=== PATIENT | female | born 1950 | race Caucasian/White ===

== ENCOUNTER → 2017-12-16 | Outpatient (CLI) | payer OTHER ==
--- NOTE | ~2017-12-16 | 2DMMODE ---
[facility] [place] [place] [address] 2 D/M-MODE ECHOCARDIOGRAM Name: LUZ LINO Room #: REG [facility] [id number] Admission: 12/16/17 Attend Phys: Chidi Crabtree Discharge: Date of : 52 Date of Service: 12/16/17 1002 Report #: [id number] THIS REPORT FOR: //name// APPROVED REPORT Study performed: 12/16/2017 09:15:33 EXAM: Comprehensive 2D, Doppler, and color-flow Echocardiogram Patient Location: Out-Patient Status: routine BSA: 2.04 HR: 72 bpm BP: 149/74 mmHg Rhythm: NSR Other Information Study Quality: Good Indications Atrial tachycardia, HTN, DM 2D Dimensions RVDd: 33.78 mm LVEF(%): 54.27 (>50%) IVSd: 9.96 (7-11mm) LVOT Diam: 18.84 (18-24mm) LVDd: 44.56 mm PWd: 10.30 (7-11mm) Ascending Ao: 26.88 (22-36mm) LVDs: 32.11 (25-40mm) Aortic Root: 28.70 mm Portillo's LVEF: 54.27 % Volumes Left Atrial Volume (Systole) Single Plane 4CH: 34.96 mL Single Plane 2CH: 33.86 mL LA ESV Index: 18.00 mL/m2 Aortic Valve AoV Peak Miguel Ángel.: 1.69 m/s AO Peak Gr.: 11.45 mmHg LVOT Max P.77 mmHg LVOT Max V: 1.09 m/s KEN Vmax: 1.80 cm2 Mitral Valve E/A Ratio: 1.1 MV Decel. Time: 240.26 ms [facility] [address] [place] [address] 2 D/M-MODE ECHOCARDIOGRAM Name: LUZ LINO Room #: [facility]#: [id number] Admission: 12/16/17 Attend Phys: Chidi Crabtree Discharge: Date of : 52 Date of Service: 12/16/17 1002 Report #: [id number] MV E Max Miguel Ángel.: 1.02 m/s MV A Miguel Ángel.: 0.96 m/s MV PHT: 69.67 ms IVRT: 76.12 ms Pulmonary Valve PV Peak Miguel Ángel.: 0.98 m/s PV Peak Gr.: 3.86 mmHg Pulmonary Vein P Vein S: 0.50 m/s P Vein A: 0.38 m/s P Vein D: 0.40 m/s P Vein A Dur.: 93.4 msec P Vein S/D Ratio: 1.25 Tricuspid Valve TR Peak Miguel Ángel.: 2.55 m/s RAP Estimate: 5.00 mmHg TR Peak Gr.: 25.96 mmHg PA Pressure: 31.00 mmHg Left Ventricle The left ventricle is normal size. There is normal LV segmental wall motion. There is normal left ventricular wall thickness. Left ventricular systolic function is normal. LVEF is 60-65%. Moderate diastolic dysfunction is present (pseudonormal filling). Right Ventricle The right ventricle is normal size. The right ventricular systolic function is normal. Atria The left atrium size is normal. The right atrium size is normal. Aortic Valve Aortic valve is mildy calcified. No aortic regurgitation is present. There is no aortic valvular stenosis. Mitral Valve The mitral valve is normal in structure. Mild mitral regurgitation. No evidence of mitral valve stenosis. Tricuspid Valve The tricuspid valve is normal in structure. Mild to moderate tricuspid regurgitation. Estimated PAP is 30-35mmHg. Pulmonic Valve The pulmonary valve is normal in structure. Trace pulmonic [facility] [address] [place] [address] 2 D/M-MODE ECHOCARDIOGRAM Name: LUZ LINO Room #: REG CL Janessa#: [id number] Admission: 12/16/17 Attend Phys: Chidi Crabtree Discharge: Date of : 52 Date of Service: 12/16/17 1002 Report #: [id number] regurgitation. Great Vessels The aortic root is normal in size. The ascending aorta is normal in size. IVC is normal in size and collapses >50% with inspiration. Pericardium There is no pericardial effusion. <Conclusion> Left ventricular systolic function is normal. There is normal LV segmental wall motion. LVEF 60-65%. Moderate diastolic dysfunction is present (pseudonormal filling). Aortic valve is mildy calcified. No aortic valvular stenosis or insufficiency. The mitral valve is normal in structure. Mild mitral regurgitation. Pulmonary artery pressure of 30-35mmHg There is no pericardial effusion. <ELECTRONICALLY SIGNED> By: Emre Watson MD, FACC 12/16/17 1002 1002 1002 Emre Watson MD, FACC /INF
== END ==
LOC: CV 12-03 09:59
DX: I08.1 Rheumatic disorders of both mitral and tricuspid valves (principal); I47.1 Supraventricular tachycardia; I10 Essential (primary) hypertension; E11.9 Type 2 diabetes mellitus without complications

== ENCOUNTER → 2018-01-09 | Outpatient (CLI) | payer OTHER ==
--- NOTE | ~2018-01-09 | SLE ---
[facility] [place] [address] POLYSOMNOGRAPHY STUDY Name: LUZ LINO Room #: REG [facility]#: [id number] Admission: 01/09/18 Attend Phys: Rona Brand MD Discharge: Date of : 52 Report #: [id number] THIS REPORT FOR: //name// CC: Rona Rich The patient with history of snoring, asthma, witnessed apnea, lymphedema. Luckey sleepiness scale of 8. COMMENTS: SLEEP SUMMARY: Total sleep time 340 minutes. Sleep efficiency 84%. Sleep onset 41 minutes, REM latency ___. SLEEP STAGE: 1-38 2-62%. RESPIRATORY SUMMARY: Central apnea 0, obstructive apnea 14, hypopneas 7. Respiratory effort related arousals 1.8. Apnea-hypopnea index of 3.7 events per recording hour. Respiratory disturbance index of 5.5 events per sleep hour. Supine AHI 5.5, left lateral 0 events per sleep hour. Periodic limb movement with arousal index of 9 events per sleep hour. Snoring 18%. Low oxygen saturation 85%, spending 0.3 minutes less than 90%. IMPRESSION: 1. Positional sleep apnea. 2. Abnormal sleep architecture with no REM or 3 sleep. 3. Periodic limb movement with arousal index of 9 events per sleep hour. 4. No significant arrhythmia noted. SUGGESTIONS: 1. the patient related her sleep was better on this night with no significant REM sleep. 2. Further evaluation regarding restless legs and periodic limb movement is recommended. 3. As there may be a REM component, further evaluation is recommended with discussion with the patient regarding her sleep night and may consider an evaluation with a home sleep study or a repeat sleep study. 4. Weight loss is recommended. 5. Further evaluation regarding medication effect on sleep is recommended 6. Oral appliance or appropriate surgery may be considered with appropriate followup. 7. Please do not hesitate to contact me if I may be of further assistance. <ELECTRONICALLY SIGNED> By: Rona Brand MD 01/14/181940 52 09 Rona Brand MD /nt
== END ==
LOC: SLEEPLAB 16:10
DX: G47.33 Obstructive sleep apnea (adult) (pediatric) (principal)

== ENCOUNTER → 2018-09-21 | Outpatient (CLI) | payer OTHER ==
--- NOTE | ~2018-09-21 | 2DMMODE ---
[facility] [address] [place] [address] 2 D/M-MODE ECHOCARDIOGRAM Name: LUZ LINO Room #: REG [facility]#: [id number] Admission: 09/21/18 Attend Phys: Chidi Crabtree Discharge: Date of : 52 Date of Service: 09/21/18 1001 Report #: [id number] THIS REPORT FOR: //name// APPROVED REPORT Study performed: 09/21/2018 09:23:20 EXAM: Comprehensive 2D, Doppler, and color-flow Echocardiogram Patient Location: Out-Patient Status: routine BSA: 2.04 HR: 79 bpm BP: 130/78 mmHg Rhythm: NSR Other Information Study Quality: Good Indications History of Atrial tachycardia, HTN. 2D Dimensions RVDd: 33.20 mm IVSd: 10.52 (7-11mm) LVOT Diam: 19.85 (18-24mm) LVDd: 44.40 mm PWd: 9.86 (7-11mm) Ascending Ao: 30.20 (22-36mm) LVDs: 23.88 (25-40mm) Aortic Root: 28.61 mm Volumes Left Atrial Volume (Systole) Single Plane 4CH: 42.46 mL Single Plane 2CH: 52.13 mL LA ESV Index: 25.00 mL/m2 Aortic Valve AoV Peak Miguel Ángel.: 1.79 m/s AO Peak Gr.: 12.86 mmHg LVOT Max P.11 mmHg LVOT Max V: 1.33 m/s KEN Vmax: 2.30 cm2 Mitral Valve E/A Ratio: 0.8 MV Decel. Time: 178.61 ms MV E Max Miguel Ángel.: 0.98 m/s [facility] [address] [place] [address] 2 D/M-MODE ECHOCARDIOGRAM Name: SHALOM PIERSONLUZ Sebastian Room #: [facility]#: [id number] Admission: 09/21/18 Attend Phys: Chidi Crabtree Discharge: Date of : 52 Date of Service: 09/21/18 1001 Report #: [id number] MV A Miguel Ángel.: 1.22 m/s MV PHT: 51.80 ms IVRT: 62.28 ms Pulmonary Valve PV Peak Miguel Ángel.: 1.38 m/s PV Peak Gr.: 7.60 mmHg Pulmonary Vein P Vein S: 0.66 m/s P Vein D: 0.57 m/s P Vein S/D Ratio: 1.16 Tricuspid Valve TR Peak Miguel Ángel.: 2.68 m/s RAP Estimate: 5.00 mmHg TR Peak Gr.: 28.68 mmHg Left Ventricle The left ventricle is normal size. There is normal LV segmental wall motion. There is normal left ventricular wall thickness. Left ventricular systolic function is normal. LVEF is 60-65%. Mild diastolic dysfunction is present (impaired relaxation pattern). Right Ventricle The right ventricle is normal size. The right ventricular systolic function is normal. Atria The left atrium size is normal. The right atrium size is normal. Aortic Valve Aortic valve is minimally calcified. No aortic regurgitation is present. There is no aortic valvular stenosis. Mitral Valve The mitral valve is normal in structure. Mild mitral regurgitation. Tricuspid Valve The tricuspid valve is normal in structure. Mild tricuspid regurgitation. Estimated PAP is 35mmHg. Pulmonic Valve The pulmonary valve is normal in structure. Trace pulmonic regurgitation. [facility] [place] [place] [address] 2 D/M-MODE ECHOCARDIOGRAM Name: SHALOM PIERSONLUZ K [id number] Admission: 09/21/18 Attend Phys: Chidi Crabtree Discharge: Date of : 52 Date of Service: 09/21/18 1001 Report #: [id number] Great Vessels The aortic root is normal in size. The ascending aorta is normal in size. IVC is normal in size and collapses >50% with inspiration. Pericardium There is no pericardial effusion. <Conclusion> The left ventricle is normal size. LVEF is 60-65%. Aortic valve is minimally calcified. The mitral valve is normal in structure. Mild mitral regurgitation. The tricuspid valve is normal in structure. Mild tricuspid regurgitation. Estimated PAP is 35mmHg. The pulmonary valve is normal in structure. Trace pulmonic regurgitation. There is no pericardial effusion. <ELECTRONICALLY SIGNED> By: Walter Christine MD 09/21/18 1001 1001 1001 Walter Christine MD /INF
== END ==
LOC: CV 09:05
DX: I08.1 Rheumatic disorders of both mitral and tricuspid valves (principal); I10 Essential (primary) hypertension

== ENCOUNTER → 2020-03-21 | Outpatient (CLI) | payer OTHER | LOC: SJCVCIMAG 08:53 | DX: I27.20 Pulmonary hypertension, unspecified (principal); R00.0 Tachycardia, unspecified ==

== ENCOUNTER 2020-04-08 17:56 | Emergency (ER) | payer OTHER ==
[~2020-04-08] VITALS: Ht 162.6 cm; Wt 98.4 kg
[2020-04-08 18:33] LABS: URINE BILIRUBIN NEGATIVE (Negative); URINE BLOOD NEGATIVE (Negative); URINE CLARITY CLEAR; URINE COLOR YELLOW; URINE GLUCOSE-RANDOM* NEGATIVE (Negative); URINE KETONES NEGATIVE (Negative); URINE NITRITE-REFLEX NEGATIVE (Negative); URINE PROTEIN (DIPSTICK) NEGATIVE (Negative); URINE UROBILINOGEN 0.2 E.U./dl (0.2-1.0)
[2020-04-08] MEDS ORDERED: AMLODIPINE BESY10 MG PO (18:33)
[2020-04-08 18:34] LABS: URINE LEUKOCYTES-REFLEX 3+ (Negative)
[2020-04-08] MEDS ORDERED: LIPITOR 20 MG T20 M1 PO (18:34)
[2020-04-08 18:35] LABS: ABSOLUTE NEUTROPHILS 6.6 thou/uL (1.4-8.2); BASOPHILS 0.9 % (0.0-2.0); HEMATOCRIT 35.5 % (37.0-47.0); HEMOGLOBIN 11.7 gm/dL (12.0-15.0); LYMPHOCYTES 23.7 % (24.0-44.0); MCH 28.9 pg (26.0-34.0); MCHC 32.8 g/dL (28.0-37.0); MCV 87.9 fL (80.0-100.0); MONOCYTES 7.7 % (1.0-8.0); PLATELET COUNT 373 thou/uL (150-400); POLYS 65.7 % (36.0-66.0); RBC 4.04 mil/uL (4.20-5.00); RDW 13.7 % (10.5-14.5)
[2020-04-08] MEDS ORDERED: NEXIUM40 MG PO (18:35)
[2020-04-08] MEDS ORDERED: ESTRACE1 TUBE VAG (18:35)
[2020-04-08] MEDS ORDERED: TAMBOCOR 100 M100 M1 PO (18:36)
[2020-04-08] MEDS ORDERED: NEURONTIN100 MG PO (18:37)
[2020-04-08] MEDS ORDERED: HYDROCHLOROTHIA25 M2 PO (18:37)
[2020-04-08] MEDS ORDERED: NEURONTIN300 MG PO (18:37)
[2020-04-08] MEDS ORDERED: IRBESARTAN300 MG PO (18:38)
[2020-04-08] MEDS ORDERED: LAMOTRIGINE250 MG PO (18:39)
[2020-04-08] MEDS ORDERED: LORAZEPAM 0.50.5 MG PO (18:40)
[2020-04-08] MEDS ORDERED: METFORMIN HCL500 M3 PO (18:40)
[2020-04-08] MEDS ORDERED: TOPROL XL100 MG PO (18:42)
[2020-04-08] MEDS ORDERED: PAXIL20 MG PO (18:43)
[2020-04-08] MEDS ORDERED: NORTRIPTYLINE H25 M3 PO (18:43)
[2020-04-08 18:45] LABS: ANION GAP 10 mmol/L (7-16); BUN 23 mg/dL (7-18); CALCIUM 9.6 mg/dL (8.5-10.1); CHLORIDE 96 mmol/L (98-107); CO2 29 mmol/L (21-32); GLUCOSE 163 mg/dL (74-106); POTASSIUM 3.5 mmol/L (3.5-5.1); SODIUM 135 mmol/L (136-145)
[2020-04-08 18:46] LABS: SQUAMOUS 0-3 Few /LPF (0-3); URINE RBC None Seen /HPF (0-2)
[2020-04-08 18:47] LABS: BACTERIA-REFLEX 1-9 Few /HPF (None Seen); CASTS None Seen /LPF (None Seen); CRYSTALS None Seen /LPF (None Seen); URINE WBC-REFLEX 0-5 Rare /HPF (0-5)
[2020-04-08 18:50] LABS: TROPONIN-I <0.06 ng/mL (<0.06)
[2020-04-08] MEDS ORDERED: PRANDIN1 MG PO (18:58)
[2020-04-08] MEDS ORDERED: QVAR REDIHALE10.6 G1 INH (18:58)
[2020-04-08] MEDS ORDERED: SLOW FE142 MG PO (18:59)
[2020-04-08 20:18] VITALS: BP 172/59
--- NOTE | 2020-04-09 14:27 | EKG ---
[facility] [place] [address] [place] [address] ELECTROCARDIOGRAM REPORT Name: LUZ LINO [facility] [id number] Admission: 04/08/20 Attend Phys: Discharge: 04/08/20 Date of : 52 Report #: [id number] THIS REPORT FOR: cc: Damien Rich MD, Ralph R. MD Park, Jin S. 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
== END 2020-04-08 20:32 | disposition home or self-care (01) ==
LOC: ER 17:56
PROVIDERS: Emergency Medicine
DX: R00.2 Palpitations (principal); R06.02 Shortness of breath; R61 Generalized hyperhidrosis; R11.0 Nausea; E11.9 Type 2 diabetes mellitus without complications; I10 Essential (primary) hypertension; G43.909 Migraine, unspecified, not intractable, without status migrainosus; Z79.899 Other long term (current) drug therapy; Z88.8 Allergy status to other drugs, medicaments and biological substances; Z88.2 Allergy status to sulfonamides

== ENCOUNTER → 2020-04-10 | Outpatient (CLI) | payer OTHER ==
[~2020-04-10] MED LIST: AMBIEN 10 MG TA10 MG PO; AMLODIPINE BESY10 MG PO; ESTRACE1 TUBE VAG; HYDROCHLOROTHIA25 M2 PO; IRBESARTAN300 MG PO; LAMOTRIGINE250 MG PO; LIPITOR 20 MG T20 M1 PO; LORAZEPAM 0.50.5 MG PO; METFORMIN HCL500 M3 PO; NEURONTIN100 MG PO; NEURONTIN300 MG PO; NEXIUM40 MG PO; NORTRIPTYLINE H25 M3 PO; PAXIL20 MG PO; PRANDIN1 MG PO; QVAR REDIHALE10.6 G1 INH; SLOW FE142 MG PO; TAMBOCOR 100 M100 M1 PO; TIZANIDINE HCL4 M1 PO; TOPROL XL100 MG PO; TRAMADOL 50 MG50 MG PO
== END ==
LOC: SJCVC 11:14
PROVIDERS: ATTEND Internal Medicine Cardiovascular Disease
DX: I47.1 Supraventricular tachycardia (principal); I10 Essential (primary) hypertension; E66.01 Morbid (severe) obesity due to excess calories; Z90.49 Acquired absence of other specified parts of digestive tract; Z79.899 Other long term (current) drug therapy

== ENCOUNTER → 2020-04-18 | Outpatient (CLI) | payer OTHER ==
[~2020-04-18] MED LIST changes: -AMBIEN 10 MG TA10 MG PO; -TIZANIDINE HCL4 M1 PO; -TRAMADOL 50 MG50 MG PO
== END ==
LOC: SJCVCIMAG 09:31
DX: R06.00 Dyspnea, unspecified (principal); I10 Essential (primary) hypertension; E11.9 Type 2 diabetes mellitus without complications; Z87.891 Personal history of nicotine dependence; Z79.82 Long term (current) use of aspirin; Z79.899 Other long term (current) drug therapy

== ENCOUNTER → 2020-05-04 | Outpatient (CLI) | payer OTHER ==
[~2020-05-04] MED LIST changes: +AMBIEN 10 MG TA10 MG PO; +TIZANIDINE HCL4 M1 PO; +TRAMADOL 50 MG50 MG PO
== END ==
LOC: SJCVC 09:16
PROVIDERS: ATTEND Internal Medicine Cardiovascular Disease
DX: R94.31 Abnormal electrocardiogram [ECG] [EKG] (principal); R06.09 Other forms of dyspnea; I47.1 Supraventricular tachycardia; I10 Essential (primary) hypertension

== ENCOUNTER → 2020-05-07 | Outpatient (CLI) | payer OTHER ==
[~2020-05-07] VITALS: Ht 162.6 cm; Wt 98.4 kg
[2020-05-07 08:48] VITALS: BP 121/37
--- NOTE | 2020-05-07 14:37 | CATHLAB ---
[facility] [place] [address] [place] [address] INVASIVE PROCEDURE REPORT Name: LUZ LINO Room #: REG JENNIFER Peres.#: [id number] Admission: 05/07/20 Attend Phys: Mir Murrell MD Discharge: Date of : 52 Report #: [id number] THIS REPORT FOR: cc: Damien Rich MD, Ralph R. MD Park, Jin S. MD ~ APPROVED REPORT Study performed: 05/07/2020 08:58:02 Patient Details Patient Status: Out-Patient Room #: The patient is a 70 year-old female Event Personnel Mir Murrell Financial Analysis Advisor, Rishi Noel RN RN, Rashmi Waters RN RN, Nuria Jimenez RTR Nayana Lindsey Ja'net RTR Monitor, Etelvina Johnston RT(R)() Monitor Procedures Performed Left Heart Cath w/or w/o Coronaries [id number] [facility] Art Access - R femoral artery* 41710 Initial Mod Sed Same Phys/QHP Gr5y [id number] Hemostasis with Manual pressure Indication Dyspnea, Positive stress test, Chest pain Risk Factors Hypercholesterolemia, Hypertension, Diabetes Procedure Narrative The patient was brought electively to the Cardiac Catheterization Laboratory and was prepped and draped in a sterile manner. The Right Groin^ was infiltrated with 1% Lidocaine subcutaneous anesthesia. A PINNACLE 4FR Sheath #[id number] sheath was inserted into the RFA^. Coronary angiography was performed using coronary diagnostic catheters. The right coronary system was accessed and visualized with a JR4 catheter. The left coronary system was accessed and visualized with a JL4 catheter. The left ventricle was accessed and visualized with a JL4 catheter. Left ventriculogram was performed in 30 degree projection. Hemostasis was obtained with manual pressure following sheath removal without any complications. The patient tolerated the procedure well and there were no complications associated with the procedure. There was no hematoma. [address] [address] INVASIVE PROCEDURE REPORT Name: LUZ LINO Room #: REG [facility]#: [id number] Admission: 05/07/20 Attend Phys: Mir Murrell MD Discharge: Date of : 52 Report #: [id number] Intraoperative Conscious Sedation Sedation start time: 9:30 Case end Time: 9:55 Fentanyl 100 mcg Versed 1 mg Fluoro Time: 3.00 minutes Dose: DAP 3435.00 cGycm2 994 mGy Contrast Type and Amount: Omnipaque 45 ml Coronary Angiography The patient's coronary anatomy is co- dominant. Diagnostic Cath Left Main The left main artery is a large-caliber vessel, with no flow-limiting lesions. LAD The LAD is a moderate-sized caliber vessel, traverses the anterior wall and wraps around the apex. This vessel is patent with no flow-limiting lesions. Diagonal 1 This is a small to moderate-sized caliber vessel, patent with no flow-limiting lesions. Diagonal 2 This is a small to moderate-sized caliber vessel, patent with no flow-limiting lesions. Circumflex Left circumflex artery is a codominant vessel, appears angiographically normal. OM1 This vessel is patent with no flow-limiting lesions. OM2 This vessel is patent with no flow-limiting lesions. Right Coronary The RCA is a dominant vessel, appears angiographically normal. R PDA This vessel is patent with no flow-limiting lesions. RPLV This vessel is patent with no flow-limiting lesions. Left Ventriculography Left Ventriculography was not performed. Ejection Fraction was 60% based off patient's Nuclear Cardiac Stress Test. An LVEDP was checked and there is no gradient across the outflow tract. Hemodynamics The aortic pressure is 163/71 mmHg with a mean of mmHg. The left ventricular pressure is 141/50 mmHg with a mean of mmHg. The left ventricular end diastolic pressure is 54 mmHg. Pullback from the left ventricle to the aorta revealed no gradient across the aortic valve. [facility] [address] [place] [address] INVASIVE PROCEDURE REPORT Name: LUZ LINO Room #: REG [facility]#: [id number] Admission: 05/07/20 Attend Phys: Mir Murrell MD Discharge: Date of : 52 Report #: [id number] Conclusion 1. Angiographically normal coronary arteries. 2. Codominant system. 3. Normal LV systolic function. 4. Recommend guideline directed medical therapy. <ELECTRONICALLY SIGNED> By: Mir Murrell MD 05/07/20 1436 1436 1436 Mir Murrell MD /INF
== END | disposition home or self-care (01) ==
LOC: CATH 07:51
PROVIDERS: ATTEND Internal Medicine Cardiovascular Disease
DX: R07.9 Chest pain, unspecified (principal); R94.39 Abnormal result of other cardiovascular function study; R06.00 Dyspnea, unspecified; I10 Essential (primary) hypertension; E11.9 Type 2 diabetes mellitus without complications; E78.00 Pure hypercholesterolemia, unspecified; F32.9 Major depressive disorder, single episode, unspecified; G43.909 Migraine, unspecified, not intractable, without status migrainosus; Z98.890 Other specified postprocedural states; Z79.899 Other long term (current) drug therapy; Z88.8 Allergy status to other drugs, medicaments and biological substances

== ENCOUNTER → 2020-05-23 | Outpatient (CLI) | payer OTHER | LOC: SJCVC 14:20 | PROVIDERS: ATTEND Internal Medicine Cardiovascular Disease | DX: R06.09 Other forms of dyspnea (principal); I10 Essential (primary) hypertension; I47.1 Supraventricular tachycardia ==

== ENCOUNTER → 2020-12-06 | Outpatient (CLI) | payer OTHER | LOC: SJCVC 13:44 | PROVIDERS: ATTEND Internal Medicine Cardiovascular Disease | DX: R06.00 Dyspnea, unspecified (principal); I47.1 Supraventricular tachycardia; I10 Essential (primary) hypertension; E11.9 Type 2 diabetes mellitus without complications; J45.909 Unspecified asthma, uncomplicated; E66.01 Morbid (severe) obesity due to excess calories; Z79.82 Long term (current) use of aspirin; Z79.899 Other long term (current) drug therapy; Z87.891 Personal history of nicotine dependence; Z79.84 Long term (current) use of oral hypoglycemic drugs; Z98.890 Other specified postprocedural states; Z82.3 Family history of stroke ==

== ENCOUNTER → 2021-01-15 | Outpatient (CLI) | payer OTHER | LOC: SJCVC 14:03 | PROVIDERS: ATTEND Internal Medicine Cardiovascular Disease | DX: R07.9 Chest pain, unspecified (principal); R06.09 Other forms of dyspnea; I10 Essential (primary) hypertension; I47.1 Supraventricular tachycardia; I48.0 Paroxysmal atrial fibrillation; J45.909 Unspecified asthma, uncomplicated; E78.00 Pure hypercholesterolemia, unspecified; E66.01 Morbid (severe) obesity due to excess calories; E11.9 Type 2 diabetes mellitus without complications; K21.9 Gastro-esophageal reflux disease without esophagitis; G47.33 Obstructive sleep apnea (adult) (pediatric); Z88.1 Allergy status to other antibiotic agents; Z88.2 Allergy status to sulfonamides; Z88.8 Allergy status to other drugs, medicaments and biological substances; Z79.899 Other long term (current) drug therapy; Z79.82 Long term (current) use of aspirin; Z87.891 Personal history of nicotine dependence ==

== ENCOUNTER → 2021-06-05 | Outpatient (CLI) | payer OTHER | LOC: SJCVC 16:05 | PROVIDERS: ATTEND Internal Medicine Cardiovascular Disease | DX: I47.1 Supraventricular tachycardia (principal); R06.00 Dyspnea, unspecified; I10 Essential (primary) hypertension; E11.9 Type 2 diabetes mellitus without complications; M79.7 Fibromyalgia; E66.01 Morbid (severe) obesity due to excess calories; J45.909 Unspecified asthma, uncomplicated; Z90.49 Acquired absence of other specified parts of digestive tract; Z88.8 Allergy status to other drugs, medicaments and biological substances; Z79.84 Long term (current) use of oral hypoglycemic drugs; Z79.82 Long term (current) use of aspirin; Z79.899 Other long term (current) drug therapy; Z87.891 Personal history of nicotine dependence; Z82.49 Family history of ischemic heart disease and other diseases of the circulatory system ==